=== PATIENT | female | born 2005 | race Caucasian/White ===

== ENCOUNTER 2025-08-22 15:37 | Emergency (ER) | payer MEDICAID ==
[~2025-08-22] VITALS: Ht 167.6 cm; Wt 67.0 kg
[2025-08-22 15:45] VITALS: TEMP 97.7
[2025-08-22] MEDS ORDERED: dexamethasone sod phosphate 10mg/ml inj IV STA (15:56)
--- NOTE | 2025-08-22 16:04 | Physician Documentation ---
History of Present Illness ~ General Chief Complaint: See Chief Complaint Stated Complaint: POPPED BLOOD VESSEL Time Seen by MD: 15:51 Source: patient Mode of Arrival: POV Exam Limitations: no limitations History of Present Illness Initial Comments 20-year-old female was having can sexual intercourse with asphyxiation last night. Patient noticed this morning that she had a small amount of petechial freckle like rash near both of her eyes as well as a small area on her left conjunctiva. Patient denies ever losing consciousness. Medication Reconciliation Allergies: Coded Allergies: No Known Allergies (Unverified , 08/22/25) Past Medical History Past Medical History: No Pertinent History Past Surgical History: noncontributory Alcohol Use: None Drug Use: none Lives with: S/O Lives In: Home Review of Systems All Other Systems at this time: Reviewed and Negative ENT: Reports: see HPI Physical Exam Physical Exam Vital Signs: RN Vital Signs have been reviewed: Yes, Temperature: 97.7, Source: Temporal, Heart Rate: 89, Respiratory Rate: 18, BP: 123/76, Pulse Oximetry: 98, Weight: 67.000 Oxygen Flow Rate: 0 Physical Exam General: Alert, no apparent distress. HEENT: moist mucous membranes. Neck: Full range of motion. Mouth shaped areas of ecchymosis to neck bilaterally no obvious hand Adi with petechia around corner of eyes, voice normal. No tenderness with palpation trachea midline Respiratory: No respiratory distress speaking in full sentences Chest: No accessory muscle use. Cardiovascular: Appears well perfused Neurologic: Oriented x4. Psychiatric: Normal mood and affect. Skin: Normal color, warm and dry. No edema, no ecchymosis. Progress Results/Orders Results/Orders Orders - SAM MACKAY [address] Neck Soft Tissues (08/22/25 15:56) Hcg, Ur Ql (08/22/25 15:56) Completed Orders - SAM MACKAY [address] Neck Soft Tissues (08/22/25 15:56) Dexamethasone Inj (Decadron 10mg/Ml Inj) (08/22/25 15:56) Vital Signs 08/22/25 15:45 Temp 97.7 Pulse 89 Resp 18 B/P (MAP) 123/76 Pulse Ox 98 O2 Flow Rate 0 EKG/XRAY/CT/US/VASC/MRI CT : Impression EXAM: CT CT NECK SOFT TISSUES W/ IV CONTRAST INDICATION: Asphyxiation Exam Date: 08/22/2025 04:32 PM COMPARISON: None TECHNIQUE: CT of the neck with intravenous contrast. RADIATION DOSE: CTDIvol: 13 mGy, DLP: 345 mGy*cm CONTRAST: Type of contrast: Isovue Contrast injected: 100 ml FINDINGS: There is no evidence of cervical mass lesion, pathologically enlarged lymph nodes or fluid collection. The fat planes of the neck appear intact. The airway and larynx are unremarkable. The parotid, submandibular and thyroid glands are unremarkable. The vascular structures of the neck appear patent. The visualized lung apices are clear. The limited visualized portions of the brain are unremarkable. The osseous structures are unremarkable. IMPRESSION: 1. No evidence of cervical mass lesion, pathologically enlarged lymph nodes or fluid collection. Medical Decision Making Additional information obtaine: N/A Findings CT scan and some Decadron to evaluate vascular integrity to her neck. Patient is clearing secretions no pain to her neck but due to petechial rash we will evaluate for any compromise. Patient was in triage alone and states that the asphyxiation was consensual. CT was negative for any vascular compromise. Patient was discharged home Differential Diagnosis Consensual asphyxiation with petechial rash around eyes and small subconjunctival hemorrhage no syncopal episode Departure Time of Disposition: 17:22 Disposition: 01 HOME / SELF CARE / HOMELESS Impression: Primary Impression: Consensual sexual strangulation with possible vascular complications Condition: Stable Additional Instructions: Follow up with primary care it is advised to continue to monitor for any new or worsening symptoms feel free to return to the ER Referrals: NO PRIMARY CARE PROVIDER (PCP) Education Educated: Patient Educated regarding: diagnosis, treatment, need for follow up Signature Scribe Signature: No scribe Attestation: The note accurately reflects work and decisions made by me.Sam Mosqueda NP 08/22/25 16:04 SAM MACKAY NP Aug 22, 2025 16:04
[2025-08-22] MEDS ORDERED: iohexol 300mg/ml 100ml inj. ONE (16:12)
--- NOTE | 2025-08-22 17:11 | RADIOLOGY REPORT ---
EXAM: CT CT NECK SOFT TISSUES W/ IV CONTRAST INDICATION: Asphyxiation Exam Date: 08/22/2025 04:32 PM COMPARISON: None TECHNIQUE: CT of the neck with intravenous contrast. RADIATION DOSE: CTDIvol: 13 mGy, DLP: 345 mGy*cm CONTRAST: Type of contrast: Isovue Contrast injected: 100 ml FINDINGS: There is no evidence of cervical mass lesion, pathologically enlarged lymph nodes or fluid collection. The fat planes of the neck appear intact. The airway and larynx are unremarkable. The parotid, submandibular and thyroid glands are unremarkable. The vascular structures of the neck appear patent. The visualized lung apices are clear. The limited visualized portions of the brain are unremarkable. The osseous structures are unremarkable. IMPRESSION: 1. No evidence of cervical mass lesion, pathologically enlarged lymph nodes or fluid collection.
[2025-08-22 17:37] VITALS: BP 122/82; PULSE 82; RESP 18; O2SAT 97
== END 2025-08-22 17:38 | disposition home or self-care (01) ==
LOC: ER 15:38
DX: T71.9XXA Asphyxiation due to unspecified cause, initial encounter (principal)
CPT/HCPCS: 70491; 99285; Q9967